=== PATIENT | female | born 1955 | race Caucasian/White ===

== ENCOUNTER → 2019-08-26 | Outpatient (CLI) | payer BC ==
--- NOTE | 2019-08-30 11:23 | XCELERA REPORT ---
[address] [address] Transthoracic Echocardiogram Report Name: YOUSUF JASMINE Age: 64 yrs Gender: Female : 1955 Patient Status: Outpatient Patient Location: Study Date: 08/26/2019 12:20 PM History: Dilated NICMP CHF Procedure: A complete two-dimensional transthoracic echocardiogram was performed (2D, M-mode, spectral and color flow Doppler). The study was technically difficult with many images being suboptimal in quality. Reason For Study: HEART FAILURE Previous Evaluation: A previous study was performed on 05/12/2019 LVEF 35-40%. Ordering Physician: VELASQUEZ IQBAL Performed By: Kimberli Hanna Interpretation Summary The left ventricle is mildly to moderately dilated. Left ventricular systolic function is moderately reduced. The Ejection Fraction estimate is 25-30% The right ventricle is normal in size and function. There is a mild amount of mitral regurgitation There is no aortic valve stenosis There is no pericardial effusion. MMode/2D Measurements & Calculations RVDd: 2.3 cm LVIDd: 4.5 cm FS: 9.8 % Ao root diam: 3.0 cm IVSd: 1.1 cm LVIDs: 4.0 cm EDV(Teich): 91.1 ml Ao root area: 7.1 cm2 LVPWd: 0.90 cm ESV(Teich): 71.3 ml EF(Teich): 21.7 % Doppler Measurements & Calculations MV E max maximiliano: MV dec slope: Ao V2 max: LV V1 max P.9 cm/sec 147.8 cm/sec 6.9 mmHg MV A max maximiliano: 741.8 cm/sec2 Ao max P.7 mmHg LV V1 max: 103.8 cm/sec MV dec time: 131.3 cm/sec MV E/A: 0.70 0.10 sec MR max maximiliano: PA V2 max: PI end-d maximiliano: TR max maximiliano: 533.2 cm/sec 88.3 cm/sec 109.5 cm/sec 256.5 cm/sec MR max PG: PA max P.1 mmHg TR max P.7 mmHg 26.3 mmHg Left Ventricle The left ventricle is mildly to moderately dilated. There is mild concentric left ventricular hypertrophy. Left ventricular systolic function is moderately reduced. The Ejection Fraction estimate is 25-30%. Doppler measurements suggest impaired left ventricular relaxation, which is associated with grade I/IV or mild diastolic dysfunction. There is moderate global hypokinesis of the left ventricle. Septal motion is consistent with conduction abnormality. Right Ventricle The right ventricle is normal in size and function. Atria The right atrium is normal. The left atrial size is normal. Mitral Valve The mitral valve is grossly normal. There is a mild amount of mitral regurgitation. Aortic Valve The aortic valve is normal in structure and function. The aortic valve is trileaflet. The aortic valve opens well. There is no aortic valve stenosis. No aortic regurgitation is present. Tricuspid Valve The tricuspid valve is normal in structure and function. There is a trace amount of tricuspid regurgitation. Right ventricular systolic pressure is estimated to be within upper limit of normal. Pulmonic Valve The pulmonic valve is normal in structure and function. There is a trace amount of pulmonic regurgitation. Great Vessels The aortic root is normal size. The inferior vena cava appeared normal and decreased > 50% with respiration (RAP 5-10 mmHg). Effusions There is no pericardial effusion. : VELASQUEZ IQBAL Anil
== END ==
LOC: SP 13:05
PROVIDERS: ATTEND Internal Medicine
DX: I50.42 Chronic combined systolic (congestive) and diastolic (congestive) heart failure (principal)
CPT/HCPCS: 93306